=== PATIENT | female | born 1960 | race Caucasian/White ===

== ENCOUNTER → 2017-04-26 | Emergency (ER) | payer OTHER ==
[~2017-04-26] VITALS: Ht 162.6 cm; Wt 133.8 kg
[~2017-04-26] MED LIST: ALLOPURINOL300 MG PO; ASA-EC81 MG PO; CARDURA XL4 MG/BOTTL PO; CARVEDILOL25 MG PO; CARdura 4MG TABLET PO; Coreg PO; HYDRALAZINE HCL25 MG PO; LASIX40 MG PO; SIMVASTATIN20 MG PO; SYMBICORT 16010.2 GM IH; TOUJEO SUBCUTANEO; XOPENEX0.63 MG/3 IH; ZYNCOF 20-400120 ML PO; ZoCOR 20MG TABLET PO
== END | disposition home or self-care (01) ==
LOC: ER 14:32
DX: J11.1 Influenza due to unidentified influenza virus with other respiratory manifestations (principal); J45.998 Other asthma